=== PATIENT | male | born 1965 ===

== ENCOUNTER → 2019-03-01 | Outpatient (CLI) | payer OTHER | END | disposition home or self-care (01) | LOC: SONOGRAMA 11:21 | DX: I11.9 Hypertensive heart disease without heart failure (principal); R31.1 Benign essential microscopic hematuria; R06.02 Shortness of breath ==

== ENCOUNTER 2022-05-07 11:05 | Outpatient (CLI) | payer OTHER | END 2022-05-07 16:11 | disposition home or self-care (01) | LOC: SONOGRAMA 11:05 | PROVIDERS: ATTEND Urology | DX: N40.0 Benign prostatic hyperplasia without lower urinary tract symptoms (principal); R31.1 Benign essential microscopic hematuria ==

== ENCOUNTER 2023-07-31 13:22 | Outpatient (CLI) | payer OTHER | END 2023-07-31 13:29 | disposition home or self-care (01) | LOC: RAD 13:22 | PROVIDERS: ATTEND Internal Medicine Geriatric Medicine | DX: R06.02 Shortness of breath (principal); I11.9 Hypertensive heart disease without heart failure ==

== ENCOUNTER 2024-04-16 07:12 | Outpatient (CLI) | payer OTHER | END 2024-04-16 07:21 | disposition home or self-care (01) | LOC: SONOGRAMA 07:12 | PROVIDERS: ATTEND Urology | DX: R31.1 Benign essential microscopic hematuria (principal); R33.9 Retention of urine, unspecified ==